=== PATIENT | male | born 1995 | race Caucasian/White ===

== ENCOUNTER 2024-12-01 18:00 | Emergency (ER) | payer SELFPAY ==
[~2024-12-01] VITALS: Ht 152.4 cm; Wt 73.0 kg
[2024-12-01 18:14] VITALS: BP 124/76; PULSE 105; RESP 20; TEMP 36.8; O2SAT 99
== END 2024-12-01 18:37 | disposition left against medical advice (07) ==
LOC: ER 18:22
DX: M79.601 Pain in right arm (principal); Z79.899 Other long term (current) drug therapy
CPT/HCPCS: 99282